=== PATIENT | male | born 1990 | race Caucasian/White ===

== ENCOUNTER 2017-09-22 06:57 | Emergency (ER) | payer SELFPAY ==
[2017-09-22 08:12] LABS: microscopic required? YES; urine erythrocyte NEGATIVE (NEGATIVE)
[2017-09-22 09:38] VITALS: BP 122/80
== END 2017-09-22 09:38 | disposition home or self-care (01) ==
LOC: ED 06:57
PROVIDERS: Emergency Medicine
DX: G89.29 Other chronic pain (principal); M54.5 Low back pain; F12.90 Cannabis use, unspecified, uncomplicated; R10.30 Lower abdominal pain, unspecified; E66.01 Morbid (severe) obesity due to excess calories
CPT/HCPCS: J1100; J1885

== ENCOUNTER 2017-12-13 08:05 | Emergency (ER) | payer OTHER ==
[~2017-12-13] VITALS: Ht 177.8 cm; Wt 115.7 kg
[2017-12-13 08:08] VITALS: Ht 177.8 cm; Wt 115.7 kg
[2017-12-13 09:02] LABS: BASOPHIL % 0.2 % (0-2); PLATELET COUNT 286 x10^3mcL (130-400); RED CELL DISTRIBUTION WIDTH 13.2 % (11.5-14.5)
[2017-12-13 09:07] LABS: CALCIUM 8.8 mg/dL (8.5-10.1); CARBON DIOXIDE 30.6 mmol/L (21-32); CHLORIDE SERUM 105 mmol/L (98-107); GLUCOSE SERUM 97 mg/dL (74-106); POTASSIUM SERUM 4.4 mmol/L (3.5-5.1); SODIUM SERUM 141 mmol/L (136-145)
[2017-12-13 09:12] LABS: ALBUMIN 3.8 g/dL (3.4-5.0); ALKALINE PHOSPHATASE 78 U/L (46-116); ALT/SGPT 52 U/L (16-63); AMYLASE 47 U/L (25-115); AST/SGOT 22 U/L (15-37); BILIRUBIN TOTAL 0.3 mg/dL (0.20-1.00); CHOLESTEROL 168 mg/dL (<200); LIPASE 85 IU/L (73-393); TOTAL PROTEIN, SERUM 7.6 g/dL (6.4-8.2)
[2017-12-13 09:13] LABS: HDL CHOLESTEROL 31 mg/dL (40-60)
[2017-12-13 11:04] LABS: UA SPECIFIC GRAVITY 1.015 (1.005-1.035); urine erythrocyte NEGATIVE (NEGATIVE)
[2017-12-13 11:22] LABS: microscopic required? YES
[2017-12-13 11:53] LABS: AMPHETAMINE QUAL UR NONE DETECTED (See below)
[2017-12-13 13:09] VITALS: BP 127/82
== END 2017-12-13 13:09 | disposition home or self-care (01) ==
LOC: ED 08:05
PROVIDERS: Emergency Medicine
DX: R07.89 Other chest pain (principal); F12.20 Cannabis dependence, uncomplicated; F17.210 Nicotine dependence, cigarettes, uncomplicated; E66.9 Obesity, unspecified
CPT/HCPCS: 36415; 83880; 99406; G0480

== ENCOUNTER 2018-09-02 09:50 | Emergency (ER) | payer OTHER ==
[~2018-09-02] VITALS: Ht 172.7 cm; Wt 117.0 kg
[2018-09-02 10:05] VITALS: BP 116/71; Ht 172.7 cm; Wt 117.0 kg
== END 2018-09-02 12:57 | disposition left against medical advice (07) ==
LOC: ED 09:50
DX: Z53.21 Procedure and treatment not carried out due to patient leaving prior to being seen by health care provider (principal)

== ENCOUNTER 2019-02-25 03:46 | Emergency (ER) | payer OTHER ==
[~2019-02-25] VITALS: Ht 182.9 cm; Wt 108.4 kg
[2019-02-25 06:13] LABS: BASOPHIL % 0.6 % (0-2); PLATELET COUNT 259 x10^3mcL (130-400); RED CELL DISTRIBUTION WIDTH 13.6 % (11.5-14.5)
[2019-02-25 06:44] LABS: CALCIUM 8.9 mg/dL (8.5-10.1); CARBON DIOXIDE 25.7 mmol/L (21-32); CHLORIDE SERUM 106 mmol/L (98-107); GFR1 > 60 mL/min; GLUCOSE SERUM 87 mg/dL (74-106); POTASSIUM SERUM 3.9 mmol/L (3.5-5.1); SODIUM SERUM 143 mmol/L (136-145)
[2019-02-25 06:46] LABS: AMYLASE 37 U/L (25-115); LIPASE 62 IU/L (73-393)
[2019-02-25 06:48] LABS: ALBUMIN 4.2 g/dL (3.4-5.0); ALKALINE PHOSPHATASE 70 U/L (46-116); ALT/SGPT 49 U/L (16-63); AST/SGOT 24 U/L (15-37); BILIRUBIN TOTAL 0.7 mg/dL (0.20-1.00); TOTAL PROTEIN, SERUM 7.8 g/dL (6.4-8.2)
[2019-02-25 07:57] LABS: UA SPECIFIC GRAVITY >=1.030 (1.005-1.035); microscopic required? YES; urine erythrocyte NEGATIVE (NEGATIVE)
[2019-02-25 08:11] VITALS: BP 118/71
== END 2019-02-25 08:11 | disposition home or self-care (01) ==
LOC: ED 03:46
PROVIDERS: Emergency Medicine
DX: R10.32 Left lower quadrant pain (principal); R11.2 Nausea with vomiting, unspecified; R06.02 Shortness of breath
CPT/HCPCS: J1885